=== PATIENT | male | born 2000 | race Caucasian/White ===

== ENCOUNTER 2023-05-26 11:16 | Outpatient (AMB) | payer OTHER, SELFPAY ==
--- NOTE | 2023-05-26 11:25 | A.OFFPC_ITS ---
Vital Signs 05/26/23 11:32 Height 6 ft Weight 222 lb 6 oz BMI 30.2 BP 128/70 Blood Pressure Location Rt brachial Position Sitting Respiration 12 Pulse 76 Pulse Source Pulse Oximeter Temp 98 F Temp Source Temporal Artery Scan Pulse Oximetry (%) 98 Oxygen Delivery Method Room Air Intake Visit Reasons: New patient-Torn ACL Intake Note: Patient states that his ACL was torn 02/27/23. Patient states that he went to the ER and and did XRays and didn't find anything and didn't do a MRI. Patient states he then went to the doctors in the and thats when he was told he had torn an ACL. Patient brought in Disc that has MRI and XRays to view. 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 Required: No Accompanied by: Self / Same As Patient Allergies dog dander Allergy (Mild, Verified 05/26/23 12:19) Itchy Eyes Medication List - Last Reconciled 05/26/23 by Imelda Rodriguez CNP No Known Home Meds Tobacco use date assessed: 05/26/23 Dental Screening Dental Screen Date: 05/26/23 Did you have a dental visit in the last 12 months?: Yes Did you have a dental problem in the last 6 months where you did not have access to dental care?: No HPI HPI Comments History of Present Illness Details 22-year-old male presents to establish care He notes he was last evaluated by his former PCP in [place] 2 months ago He reclocated to [facility] from [place] a month ago. He is in the He denies significant PMH He notes that he is not prescription medications He states his left ACL torn after he picked up his friend on his shoulder and around with him on 02/27/2023. He was evaluated in the ED and was later diagnosed with ACL tear after he had an MRI at a clinic. No acute symptoms today PFSH Medical History (Updated 05/26/23 @ 12:42 by Imelda Rodriguez CNP) ADD (attention deficit disorder) ADHD Hypoglycemia Torn ACL Surgical History (Updated 05/26/23 @ 11:44 by Lara Hdez MA) No pertinent past surgical history Family History (Updated 05/26/23 @ 11:46 by Lara Hdez MA) Mother Peanut allergy Animal dander allergy Asthma Schizophrenic disorder Alcoholism Social History Housing: Apartment Patient Tobacco Use Status: Never used Tobacco e-Cigarette/Vaping Use: Former Use (Vaping) service: Yes Current occupational status: employed Current occupation: [id number] Cognitive needs: No Hearing needs: No Vision needs: No Questionnaire PHQ-9 Over the last 2 weeks, how often have you been bothered by any of the following problems? 1. Little interest or pleasure in doing things: not at all 2. Feeling down, depressed, or hopeless: not at all 3. Trouble falling or staying asleep, or sleeping too much: not at all 4. Feeling tired or having little energy: not at all 5. Poor appetite or overeating: not at all 6. Feeling bad about yourself - or that you are a failure or have let yourself or your family down: not at all 7. Trouble concentrating on things, such as reading the newspaper or watching television: not at all 8. Moving or speaking so slowly that other people could have noticed. Or the opposite - being so fidgety or restless that you have been moving around a lot more than usual: not at all 9. Thoughts that you would be better off or of hurting yourself in some way: not at all Total score: 0 Depression Screening Interpretation: Negative Source: Developed by Drs. Charles Costello, Sonam Farley, Jonnie Beebe and colleagues, with an educational halima from [employer]. Thrive Questionnaire Date Thrive assessed: 05/26/23 I am a: Patient What is your living situation today?: I have a steady place to live Within the past 12 months, did the food you bought not last and you didn't have the money to get more?: Never true Within the past 12 months, did you worry whether your food would run out before you got money to buy more?: Never true Do you have trouble paying for medicines?: No Do you have trouble getting transportation to medical appointments?: No Do you have trouble paying your heating and electricity bill?: No Do you have trouble taking care of your child, family member or friend?: No Do you have trouble with day-to-day activities such as bathing, preparing meals, shopping, managing finances, etc.?: No Are you currently unemployed and looking for a job?: No Are you interested in more education?: Yes Please select the resources that you would like help with: Education Currently or been in a relationship where the following occur: no concerns reported NAJMA-7 AMB Questionnaire NAJMA-7 Date NAJMA - 7 assessed: 05/26/23 Feeling nervous, anxious, or on edge: 0 = Not at all Not being able to stop or control worryin = Not at all Worrying too much about different things: 0 = Not at all Trouble relaxin = Not at all Being so restless that it is hard to sit still: 0 = Not at all Becoming easily annoyed or irritable: 0 = Not at all Feeling afraid as if something awful might happen: 0 = Not at all Total NAJMA-7 score (0-4 normal; 5-9 mild; 10-14 moderate; 15-21 severe): 0 Source: Developed by Drs. Charles Costello, Sonam Farley, Jonnie Beebe and colleagues, with an educational halima from [employer]. Review of Systems Const Details: Denies chills, Denies fatigue, Denies fever(s), Denies headache(s) and Denies weakness HEENT Denies change in vision, Denies dizziness, Denies headache(s), Denies hearing loss, Denies nasal congestion, Denies sinus pain, Denies sinus pressure and Denies sore throat Card Denies chest pain, Denies lightheadedness, Denies dyspnea and Denies other (palpitations) Resp Denies cough, Denies dyspnea and Denies wheezing GI Denies abdominal pain, Denies melena, Denies hematochezia, Denies change in bowel habits, Denies dyspepsia and Denies nausea Denies hematuria and Denies dysuria Musc Denies abnormal gait, Denies myalgias, Denies arthralgias, Denies numbness and Denies tingling Skin/Breast Denies rash, Denies unusual bruising and Denies wounds Neuro Denies abnormal gait, Denies dizziness, Denies headache(s), Denies memory loss, Denies numbness, Denies Sensory deficit (Neuro), Denies tingling and Denies weakness Psych Denies anxiety, Denies depression and Denies memory loss Endo Denies cold intolerance, Denies fatigue, Denies heat intolerance, Denies polydipsia and Denies polyuria Roddy/Lymph Denies easy bleeding and Denies easy bruising Aller/Immun Denies wheezing Physical exam (Primary Care) Vital Signs: Last Vital Signs Temp 98 F 05/26/23 11:32 Pulse 76 05/26/23 11:32 Resp 12 05/26/23 11:32 BP 128/70 05/26/23 11:32 Pulse Ox 98 05/26/23 11:32 Oxygen Delivery Method Room Air 05/26/23 11:32 BMI result Body Mass Index 30.2 Tobacco/Smoking Status: Tobacco use Status Tobacco use date assessed 05/26/23 05/26/23 11:52 Patient Tobacco Use Status Never used Tobacco 05/26/23 11:52 Tobacco use type 05/26/23 11:52 e-Cigarette/Vaping Use Former Use (Vaping) 05/26/23 11:52 PHQ-9: PHQ-9 Score PHQ-9: Total score 0 05/26/23 11:52 Depression Screening Interpretation: Negative Thrive Assessment: Date of Thrive Assessment Date Thrive assessed 05/26/23 05/26/23 11:52 Currently or been in a relationship where the following occur: no concerns reported Const Other: General: no acute distress, well developed, alert and awake Nutritional Appearance: well nourished Orientation/consciousness: patient oriented x3 HENMT Head: Yes normocephalic and Yes atraumatic Ears: hearing grossly normal bilaterally and TM's normal bilaterally General nose exam: Normal external nose present and Normal nares present Mouth: Normal oral and palatal mucosa present and moist mucous membranes Teeth and gingiva: dentition normal Throat: Yes oropharynx normal Eyes Pupils: Equal, round and reactive pupils present and Pupil accommodation reflex normal EOM: EOMs intact bilaterally Neck Neck: Yes normal visual inspection, Yes no lymphadenopathy and Yes trachea midline Thyroid: Thyroid normal Carotids: no bruits Lymphatic: no lymphadenopathy noted Chest Chest palpation & inspection: normal inspection of the chest Resp Effort & Inspection: normal respiratory effort Auscultation: clear to auscultation bilaterally Cardio Rate: regular rate Rhythm: regular rhythm Heart sounds: S1 normal heart sound present, S2 normal heart sound present, no gallops, no murmurs and no rubs Bruits: no abdominal aortic bruits and no carotid bruits GI Palpation (GI): No Abdominal aortic bruit present, Soft to palpation, nontender, No hepatosplenomegaly present and No Rebound tenderness present Auscultation: normal bowel sounds General: Yes no CVA tenderness Back/Spine/Pelvis Back: no CVA tenderness Cervical Spine: cervical ROM normal and No Cervical spine tenderness Thoracic/Lumbar Spine: thoraco-lumbar ROM normal, No pain with thoraco-lumbar ROM, No thoracic spinal tenderness and No lumbar spinal tenderness Skin General: warm and dry. Normal skin color. Normal skin turgor Lesions: no lesions Rashes: no rashes Trauma: no lacerations or abrasions Wounds: no wounds Nails: normal Neuro General: patient oriented x3, gait normal and CN's II-XI intact bilaterally Cranial nerves: Yes Equal, round and reactive pupils present Cognition (Neuro): normal cognition Gait exam (Neuro): Normal gait present Motor exam (neuro): 5/5 motor strength present throughout Sensory Exam: No Sensory deficit (Neuro) Deep tendon reflexes (DTR's): Right patellar reflex intensity grade: 2+ and Left patellar reflex intensity grade: 2+ Extrem General: Yes normal to inspection, No edema and No calf tenderness Psych Appearance: grossly normal Affect: normal affect Attitude: cooperative Thought process: Normal thought process present Assessment and Plan Assessment & Plan (1) Normal physical examination, routine: Code(s): Z00.00 - Encounter for general adult medical examination without abnormal findings Plan: No significant physical restrictions or limitations noted Encouraged to get blood work done before next visit Follow-up in 1 month for labs review Return sooner with symptoms or concerns Verbalized understanding and agreed with treatment plan. (2) Torn ACL: Code(s): S83.519A - Sprain of anterior cruciate ligament of unspecified knee, initial encounter Plan: He states his left ACL torn after he picked up his friend on his shoulder and around with him on 02/27/2023. He was evaluated in the ED and was later diagnosed with ACL tear after he had an MRI at a clinic. Denies acute symptoms Review of MRI report on 03/02/2023 revealed full-thickness anterior cruciate ligament tear with irregularity of the posterolateral joint capsule which may represent capsular injury. The lateral stabilizers are order weighs intact Referred to Orthopedics Advised to follow-up with symptoms or concerns Verbalized understanding and agreed with the plan. (3) Laboratory tests ordered as part of a complete physical exam (CPE): Code(s): Z00.00 - Encounter for general adult medical examination without abnormal findings Plan: Fasting labs ordered as part of a complete physical exam. Advised to fast for at least 10 hours before getting labs drawn. May drink water Verbalized understanding and agreed with treatment plan. Orders: Orders Comprehensive [place]. Panel Fast Today Z00.00 - Encounter for general adult medical examination without abnormal findings Lipid Panel Today Z00.00 - Encounter for general adult medical examination without abnormal findings TSH reflex Free T4 Today Z00.00 - Encounter for general adult medical examination without abnormal findings Complete Blood Count no Diff Today Z00.00 - Encounter for general adult medical examination without abnormal findings UA CC w/rflx Micro + Cult Today Z00.00 - Encounter for general adult medical examination without abnormal findings Referrals Orthopedics Referral S83.519A - Sprain of anterior cruciate ligament of unspecified knee, initial encounter Coding Level of Care Code New Pt Level 3 (57008) New Pt Prev Care 18-39yr(17831 Diagnoses Normal physical examination, routine Z00.00 Torn ACL S83.519A Laboratory tests ordered as part of a complete physical exam (CPE) Z00.00 Time Spent (min) 35
[2023-05-26 11:32] VITALS: BP 128/70; PULSE 76; RESP 12; TEMP 36.6; O2SAT 98; BMI 30.2
== END 2023-05-26 12:42 | disposition home or self-care (01) ==
PROVIDERS: PCP Nurse Practitioner Family; Visit Provider Nurse Practitioner Family
DX: Z00.00 Encounter for general adult medical examination without abnormal findings (principal); S83.519A Sprain of anterior cruciate ligament of unspecified knee, initial encounter
CPT/HCPCS: 99385

== ENCOUNTER 2023-07-07 11:41 | Outpatient (REF) | payer OTHER, SELFPAY ==
[2023-07-07 14:21] LABS: Appearance Urine Clear; Color Urine Yellow; Glucose Urine UA Negative (Negative); Hemoglobin 14.7 g/dl (14.0-18.0); Leukocyte Esterase Urine Negative (Negative); Mean Corpuscular HGB Conc 33.4 g/dl (31.0-36.0); Mean Corpuscular Hemoglobin 29.7 pg (27.0-33.0); Mean Corpuscular Volume 88.9 fL (80.0-98.0); Mean Platelet Volume 9.9 fL (9.4-12.4); Nitrite Urine Negative (Negative); PH 6.5 (5.0-9.0); Platelet Count 337 X10*3/uL (160-400); Red Blood Count 4.95 X10*6/uL (4.60-5.80); Red Cell Distribution Width 12.2 % (11.0-16.0); Specific Gravity - Urine 1.015 (1.005-1.025); Urine Blood Negative (Negative); Urine Ketones Negative (Negative); Urine Protein Negative (Neg-Trace); White Blood Count 5.5 X10*3/uL (4.8-10.8)
[2023-07-07 15:07] LABS: Alanine Aminotransferase 26 U/L (0-40); Albumin Level 4.6 g/dL (3.5-5.0); Alkaline Phosphatase 69 U/L (39-117); Anion Gap 11 (12-20); Aspartate Amino Transferase 24 U/L (5-37); Bilirubin Total 0.9 mg/dL (0.0-1.0); Blood Urea Nitrogen 13 mg/dL (9-16); Calcium 9.6 mg/dL (8.4-10.2); Carbon Dioxide 24 mmol/L (22-29); Chloride 107 mmol/L (96-108); Cholesterol 182 mg/dL (<200); Estimated Glomerular Filt Rate > 60; Glucose Fasting 87 mg/dL (60-99); HDL Cholesterol 53 mg/dL (>40); LDL Cholesterol Calculated 114 mg/dL (<100); Potassium 4.3 mmol/L (3.3-5.1); Sodium 138 mmol/L (135-145); Total Protein 7.3 g/dL (6.5-8.0); Triglycerides 77 mg/dL (<150)
[2023-07-07 15:13] LABS: TSH reflex Free T4 1.73 uIU/mL (0.32-4.0)
== END 2023-07-07 11:42 | disposition home or self-care (01) ==
LOC: HO.WFDLDS 11:41
PROVIDERS: Visit Provider Nurse Practitioner Family
DX: Z00.00 Encounter for general adult medical examination without abnormal findings (principal)
CPT/HCPCS: 36415; 80053; 80061; 81003; 84443; 85027

== ENCOUNTER 2023-07-09 08:54 | Outpatient (AMB) | payer OTHER, SELFPAY ==
--- NOTE | 2023-07-09 08:59 | MHC.OFFVIS ---
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 Patient reports that he has been having pain for about 5-6 months after injury. While intoxicated his friend was on his shoulders, he jumped and felt a pop in the knee and the knee gave out. He had coninuted pain and swelling of the left knee the following day where he had xrays, he later had an MRI done as well. Patient had an MRI done which showed an ACL tear. He curently has pain in the left knee, pain is worse with increased acitivity and lifting. He does have and use a hinged knee brace for the knee. 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 According to the intake note this occured when he tried jumping with his friend on his shoulders. Following this jump he felt a painful pop in his knee and his knee gave way on him. He reports being intoxicated at the time. He complains of pain and swelling in his knee since the injury, which he says worsens with increased activity or lifting activities. He says remaining physically fit is required for his job but this is very difficult due to his pain and instability. He says using stairs or exercising at the gym is difficult, and he has episodes of his knee feeling like giving way which he says is painful but resolves with time. He wears a hinged knee brace with activity, with some relief. He says recently his pain was bad enough that he felt he had to wear his brace with activity. He has some anxiety over surgery, and says this is mostly about being under anesthesia. He relates this to being black-out drunk and he is uncomfortable with this feeling. He reports having a family history of addiction, denies any personal drug use, but he is concerned about receiving Opiates following surgery He says he had an MRI done of his knee and was told he had a large ACL tear. He did not bring in his imaging today but a copy of the report was available for review. [facility] Medical History (Updated 07/09/23 @ 09:01 by David Avila) ADD (attention deficit disorder) ADHD Hypoglycemia Torn ACL Surgical History (Updated 05/26/23 @ 11:44 by Lara Hdez MA) No pertinent past surgical history Family History (Updated 05/26/23 @ 11:46 by Lara Hdez MA) Mother Peanut allergy Animal dander allergy Asthma Schizophrenic disorder Alcoholism Social History Housing: Apartment Patient Tobacco Use Status: Never used Tobacco e-Cigarette/Vaping Use: Former Use (Vaping) service: Yes Current occupational status: employed Current occupation: [employer] Cognitive needs: No Hearing needs: No Vision needs: No Review of Systems Const All systems reviewed & are unremarkable except as noted in HPI and below Physical Exam Vital Signs: BMI result Body Mass Index 30.1 Const General: no acute distress, alert and awake Orientation/consciousness: patient oriented x3 HEENT Head: Yes normocephalic and Yes atraumatic Eyes EOM: EOMs intact bilaterally Resp Effort & Inspection: normal respiratory effort and able to speak in complete sentences Cardio Jugular venous distension: no JVD Skin General skin exam: turgor normal Rashes: no rashes Neuro General: patient oriented x3 Extrem Other: Left Knee: Full ROM No effusion No JLT 2+ pato's Psych Appearance: grossly normal Affect: normal affect Attitude: cooperative Results Reviewed Results Reviewed: I personally reviewed relevant MR images Full-thickness ACL tear with irregularity of the posterolateral joint capsule which may represent capsular injury. The lateral stabilizers are otherwise intact. Large joint effusion. Bone contusion involving the posterolateral tibial plateau Assessment & Plan Assessment & Plan (1) Left anterior cruciate ligament tear: Code(s): S83.512A - Sprain of anterior cruciate ligament of left knee, initial encounter Plan: This is a 22 year old man with a left full-thickness ACL tear after a jumping injury from ~-01/2023. 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 He complains of several months of pain and swelling with activity, worse with using stairs, deep squats, or twisting activities. He has no effusion today. He denies any prior treatment and finds some relief from a hinged knee brace. I discussed his diagnosis and treatment options. I recommend a left ACL reconstruction, and the patient would like this done with autograft, with allograft on stand-by. I discussed the risks, benefits, and alternatives including, but not limited to, the risk of pain, infection, stiffness, need for further surgery as well as potential medical complications such as blood clots, pulmonary embolism and cardiac complications. I discussed the recovery timeline and process as well as the importance of PT. Da is a good candidate for this surgery, and he wishes to proceed with this decision. He will speak with Lor to schedule this procedure.He reports having a family history of addiction, denies any personal drug use, but he is concerned about receiving Opiates following surgery. I discussed this with him and reassured him that this was unlikely given the prescribed short-course of medication. Plan Scribed for Edwin Garcia MD by David Avila, medical center representative, on 07/09/23 at 9:30 AM, EST. Coding Level of Care Code New Pt Level 4 (71335) Diagnoses Left anterior cruciate ligament tear S83.512A
[2023-07-09 09:00] VITALS: BMI 30.1
== END 2023-07-09 09:49 | disposition home or self-care (01) ==
PROVIDERS: PCP Nurse Practitioner Family; Visit Provider Orthopaedic Surgery
DX: S83.512A Sprain of anterior cruciate ligament of left knee, initial encounter (principal)
CPT/HCPCS: 99204

== ENCOUNTER → 2023-07-09 08:54 | Outpatient (BNVA) | payer OTHER, SELFPAY | PROVIDERS: PCP Nurse Practitioner Family; Visit Provider Orthopaedic Surgery | DX: S83.512A Sprain of anterior cruciate ligament of left knee, initial encounter (principal) | CPT/HCPCS: 99202 ==

== ENCOUNTER 2023-07-17 11:34 | Outpatient (AMB) | payer OTHER, SELFPAY ==
[2023-07-17 11:36] VITALS: BP 112/60; PULSE 87; RESP 12; TEMP 36.4; O2SAT 99; BMI 30.9
--- NOTE | 2023-07-17 11:36 | MHC.PC.OV ---
Vital Signs 07/17/23 11:36 Height 6 ft Weight 228 lb 2 oz BMI 30.9 BP 112/60 Blood Pressure Location Lt brachial Position Sitting Respiration 12 Pulse 87 Pulse Source Pulse Oximeter Temp 97.6 F Temp Source Temporal Artery Scan Pulse Oximetry (%) 99 Oxygen Delivery Method Room Air Intake Visit Reasons: 1 mos lab review Intake Note: patient does not have any concerns today. Orchid Hand Required: No Accompanied by: Self / Same As Patient Allergies dog dander Allergy (Mild, Verified 07/17/23 11:57) Itchy Eyes amoxicillin Adverse Reaction (Verified 07/17/23 11:57) Unknown Medication List - Last Reconciled 07/17/23 by Imelda Rodriguez CNP No Known Home Meds Tobacco use date assessed: 05/26/23 Dental Screening Dental Screen Date: 07/17/23 Did you have a dental visit in the last 12 months?: Yes Did you have a dental problem in the last 6 months where you did not have access to dental care?: No Was dental information given to patient?: Patient has dentist HPI HPI Comments History of Present Illness Details 22-year-old male presents for labs review follow-up. He establish care last month and had routine blood work done. He notes recently had a consultation with [facility] orthopedic surgery and has total reconstructive surgery of the left knee scheduled for later this month. Review of [facility] ortho surgery notes revealed plan for ACL reconstruction. He offers no complaints today and denies acute symptoms. [facility] Medical History ADD (attention deficit disorder) ADHD Hypoglycemia Torn ACL Surgical History No pertinent past surgical history Family History Mother Peanut allergy Animal dander allergy Asthma Schizophrenic disorder Alcoholism Social History Housing: Apartment Patient Tobacco Use Status: Former Tobacco user e-Cigarette/Vaping Use: Former Use (Vaping) service: Yes Current occupational status: employed Current occupation: [employer] Cognitive needs: No Hearing needs: No Vision needs: No Questionnaire Thrive Questionnaire Date Thrive assessed: 05/26/23 NAJMA-7 AMB Questionnaire NAJMA-7 Date NAJMA - 7 assessed: 05/26/23 Source: Developed by Drs. Charles Costello, Sonam Farley, Jonnie Beebe and colleagues, with an educational halima from [employer]. Review of Systems Const Details: Const Denies chills, Denies fatigue, Denies fever(s), Denies headache(s) and Denies weakness ENT Denies dizziness and Denies headache(s) Card Denies chest pain, Denies lightheadedness, Denies dyspnea and Denies other (Palpitations) Resp Denies cough, Denies dyspnea, Denies wheezing and Denies other ( shortness of breath) GI Denies abdominal pain, Denies melena, Denies hematochezia, Denies change in bowel habits, Denies dyspepsia and Denies nausea Denies hematuria and Denies dysuria Musc Denies abnormal gait, Denies myalgias, Denies arthralgias, Denies numbness and Denies tingling Skin/Breast Denies rash, Denies unusual bruising and Denies wounds Neuro Denies abnormal gait, Denies dizziness, Denies headache(s), Denies memory loss, Denies numbness, Denies Sensory deficit (Neuro), Denies tingling and Denies weakness Psych Denies anxiety, Denies depression, Denies memory loss Endo Denies cold intolerance, Denies fatigue, Denies heat intolerance, Denies polydipsia and Denies polyuria Aller/Immun Denies wheezing Physical exam (Primary Care) Vital Signs: Last Vital Signs Temp 97.6 F 07/17/23 11:36 Pulse 87 07/17/23 11:36 Resp 12 07/17/23 11:36 BP 112/60 07/17/23 11:36 Pulse Ox 99 07/17/23 11:36 Oxygen Delivery Method Room Air 07/17/23 11:36 BMI result Body Mass Index 30.9 Tobacco/Smoking Status: Tobacco use Status Tobacco use date assessed 05/26/23 07/17/23 11:47 Patient Tobacco Use Status Former Tobacco user 07/17/23 11:47 Tobacco use type 06/23/23 15:16 e-Cigarette/Vaping Use Former Use (Vaping) 07/17/23 11:47 Thrive Assessment: Date of Thrive Assessment Date Thrive assessed 05/26/23 07/17/23 11:47 Const Other: General: no acute distress and well developed Nutritional Appearance: well nourished Orientation/consciousness: patient oriented x3 HENMT Head: Yes normocephalic and Yes atraumatic Eyes General: appearance normal, both eyes and all related structures Pupils: Equal, round and reactive pupils present EOM: EOMs intact bilaterally Resp Effort & Inspection: normal respiratory effort Auscultation: clear to auscultation bilaterally Cardio Rate: regular rate Rhythm: regular rhythm Heart sounds: S1 normal heart sound present, S2 normal heart sound present, no gallops, no murmurs and no rubs GI Palpation (GI): No Abdominal aortic bruit present, Soft to palpation, nontender, No hepatosplenomegaly present and No Rebound tenderness present Auscultation: normal bowel sounds General: Yes no CVA tenderness Back/Spine/Pelvis Back: no CVA tenderness Cervical Spine: cervical ROM normal and No Cervical spine tenderness Thoracic/Lumbar Spine: thoraco-lumbar ROM normal, No pain with thoraco-lumbar ROM, No thoracic spinal tenderness and No lumbar spinal tenderness Extrem General: Yes normal to inspection, No edema and No calf tenderness Skin General: warm and dry. Normal skin color. Normal skin turgor Lesions: no lesions Rashes: no rashes Trauma: no lacerations or abrasions Wounds: no wounds Nails: normal Neuro General: patient oriented x3, gait normal and no focal neuro deficit Cranial nerves: Yes Equal, round and reactive pupils present Cognition (Neuro): normal cognition Gait exam (Neuro): Normal gait present Sensory Exam: No Sensory deficit (Neuro) Psych Appearance: grossly normal Affect: normal affect Attitude: cooperative Thought process: Normal thought process present Assessment and Plan Assessment & Plan (1) Left anterior cruciate ligament tear: Code(s): S83.512A - Sprain of anterior cruciate ligament of left knee, initial encounter Plan: No acute symptoms Follow-up with [facility] orthopedic surgery as planned Return with symptoms or concerns Verbalized understanding and agreed with treatment plan. (2) Laboratory tests ordered as part of a complete physical exam (CPE): Code(s): Z00.00 - Encounter for general adult medical examination without abnormal findings Plan: Recent labs reviewed with the patient and findings are Unremarkable Encouraged to schedule his next physical for next year Follow-up with concerns or symptoms Verbalized understanding and agreed with treatment plan. Coding Level of Care Code Est Pt Level 2 (50751) Diagnoses Left anterior cruciate ligament tear S83.512A Laboratory tests ordered as part of a complete physical exam (CPE) Z00.00
== END 2023-07-17 12:07 | disposition home or self-care (01) ==
PROVIDERS: PCP Nurse Practitioner Family; Visit Provider Nurse Practitioner Family
DX: S83.512A Sprain of anterior cruciate ligament of left knee, initial encounter (principal); Z00.00 Encounter for general adult medical examination without abnormal findings
CPT/HCPCS: 99212

== ENCOUNTER 2023-08-05 06:01 | Day surgery (SDC) | payer OTHER, SELFPAY ==
[2023-07-31 14:21] VITALS: BMI 30.1
--- NOTE | 2023-08-04 08:25 | P.CONAN_ITS ---
Documented by User: Natalie Jiang NP 08/04/23 08:27 HPI - Anesthesia Eval Consult details Narrative: 22yo M for Left ACL Reconstruction w/autograft, possible allograft PMFSH Active Problems Active Problems: All Active Problems (Updated 07/09/23 @ 09:01 by David Avila) Left anterior cruciate ligament tear (Acute) Laboratory tests ordered as part of a complete physical exam (CPE) (Acute) Torn ACL (Acute) Normal physical examination, routine (Acute) Past Medical History Medical History Hypoglycemia Torn ACL ADD (attention deficit disorder) ADHD Family History Family History Mother Peanut allergy Animal dander allergy Asthma Schizophrenic disorder Alcoholism Surgical History Surgical History No pertinent past surgical history Social History Social History Housing: Apartment Patient Tobacco Use Status: Former Tobacco user Tobacco use type: Cigarette e-Cigarette/Vaping Use: Former Use (Vaping) Use of substances other than those prescribed or required for medical reasons: No Are you DNR?: No Advance Directives: No Advance Directives Information Provided: Yes service: Yes Current occupational status: employed 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 needs: No Hearing needs: No Vision needs: No Meds Allergies Allergy/AdvReac Type Severity Reaction Status Date / Time dog dander Allergy Mild Itchy Eyes Verified 07/17/23 11:57 amoxicillin AdvReac Unknown Verified 07/17/23 11:57 Home Medications Medication Instructions Recorded Confirmed Last Taken Type No Known Home Meds 05/26/23 08/05/23 Unknown History Exam Exam Date and Time: August 04, 2023 0825 Height,Weight and Vital Signs: Height 6 ft Weight 100.698 kg Pertinent Lab Results Pertinent Lab Results: Laboratory Tests 07/07/23 11:43 WBC 5.5 Hgb 14.7 Hct 44.0 Plt Count 337 Sodium 138 Potassium 4.3 Chloride 107 Carbon Dioxide 24 BUN 13 Creatinine 0.93 Assessment and Plan Assessment Anesthesia Assessment: Chart Reviewed Documented by User: Nancy Gay MD 08/05/23 08:02 PMFSH Past Medical History Medical History Hypoglycemia Torn ACL ADD (attention deficit disorder) ADHD Family History Family History Mother Peanut allergy Animal dander allergy Asthma Schizophrenic disorder Alcoholism Family history of problems with anesthesia: No Surgical History Surgical History No pertinent past surgical history Social History Social History Housing: Apartment Patient Tobacco Use Status: Former Tobacco user Tobacco use type: Cigarette e-Cigarette/Vaping Use: Former Use (Vaping) Use of substances other than those prescribed or required for medical reasons: No Are you DNR?: No Advance Directives: No Advance Directives Information Provided: Yes service: Yes Current occupational status: employed 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 needs: No Hearing needs: No Vision needs: No Meds Allergies Allergy/AdvReac Type Severity Reaction Status Date / Time dog dander Allergy Mild Itchy Eyes Verified 07/17/23 11:57 amoxicillin AdvReac Unknown Verified 07/17/23 11:57 Home Medications Medication Instructions Recorded Confirmed Last Taken Type No Known Home Meds 05/26/23 08/05/23 Unknown History Exam Airway Mallampati Class: II TM Dist: >3cm Neck ROM: Full Heart: rrr Lungs: cta Assessment and Plan Assessment Anesthesia Assessment: Anesthesia Plan Discussed Final Anesthetic Review Family History of Problems with Anesthesia: No NPO: Yes ASA Class: II Final Preanesthetic Review: No Changes in Pt Med Stat, Meds/Allgs Chart Reviewed, Consent Obtained/Reviewed and Anes Risks/Benef Reviewed Patient Risk: Low Procedure Risk: Intermediate Anesthetic Plan Anesthetic Plan: GA and Regional Block Disposition: Standard PACU
[2023-08-05 06:20] VITALS: BP 132/80; PULSE 75; RESP 16; TEMP 37.4; O2SAT 100
[2023-08-05] MEDS: Lactated Ringers 1,000 ML 100 ML IVCONT (06:40)
--- NOTE | 2023-08-05 07:10 | MHC.SHP ---
Pre-Procedural Eval Section A Date of Service: 08/05/23 The patient is an INPATIENT: No Changes since office visit: No Cold of Flu in the past 2 weeks, No New Medical Problems, No Changes in Medication and No Patient answered all questions The History & Physical has been completed within 30 days and I have reviewed it.: Yes Section B Chief Complaint: Sprain of anterior cruciate ligament of left knee Allergies: Allergies Allergy/AdvReac Type Severity Reaction Status Date / Time dog dander Allergy Mild Itchy Eyes Verified 07/17/23 11:57 amoxicillin AdvReac Unknown Verified 07/17/23 11:57 Plan I have reviewed the history and physical and performed a pertinent physical examination on my patient. No changes have occurred unless specified. Time Spent With Patient Time: Total time managing care of this patient today ____ minutes.
--- NOTE | 2023-08-05 09:22 | P.BOP_ITS ---
Brief Operative Note Date of Service: 08/05/23 Pre-op diagnosis: Left ACL tear Post-op diagnosis: same Procedure: Left ACL with allograft Implants: Frank and Nephew ACL button and 10x25 interference screw Surgeon: Edwin Garcia MD Anesthesia: GETA and regional Was an Luncheonette Manager used for this Procedure?: Yes Luncheonette Manager: Kirti Cao Estimated blood loss (mL): 50 Tourniquet time (min): 40 IV fluids (mL): 1,000 Pathology: none sent Condition: stable Disposition: PACU
[2023-08-05 09:36] VITALS: BP 113/65; PULSE 85; RESP 20; TEMP 36.8; O2SAT 100
[2023-08-05 09:41] VITALS: BP 119/66; PULSE 77; RESP 20; O2SAT 96
[2023-08-05 09:46] VITALS: BP 127/60; PULSE 79; RESP 20; O2SAT 96
[2023-08-05 09:51] VITALS: BP 126/65; PULSE 72; RESP 19; O2SAT 96
[2023-08-05 10:06] VITALS: BP 130/66; PULSE 59; RESP 18; TEMP 36.5; O2SAT 97
--- NOTE | 2023-08-10 11:14 | W.PM.OPN ---
Operative Note Operative Note Date of Service: 08/05/23 Narrative: Date of Service: 08/05/23 Pre-op diagnosis: Left ACL tear Post-op diagnosis: same Procedure: Left ACL with allograft Implants: Frank and Nephew ACL button and 10x25 interference screw Surgeon: Edwin Garcia MD Anesthesia: GETA and regional Was an Wallet Assembler used for this Procedure?: Yes Wallet Assembler: Kirti Cao Estimated blood loss (mL): 50 Tourniquet time (min): 40 IV fluids (mL): 1,000 Pathology: none sent Condition: stable Disposition: PACU Procedure in detail: Patient was brought to the operating room placed supine on the arthroscopic table and prepped and draped in standard sterile fashion. A time-out was called to identify proper site proper procedure proper surgeon and IV antibiotics per weight were administered. Under anesthesia she had a + pivot shift. I made a medial incision and the pes tendonw were identified after sharp dissection through the fasica. The smaller of the tendons was stripped proximally but diminutive and then the semi T was identified and stripped proximally but also of small caliber. The decision was made to use allograft given his age. I then exsanguinated the limb and insufflating tourniquet to 300 mm Hg. I made a standard anterolateral stab incision. The knee was insufflated with water and 30 degree arthroscope was placed. There was grade 1 fibrillations of the patella but overall suprapatellar pouch and the gutters were clean. I descended into the medial compartment where I made my far medial portal under direct visualization. There was an intac medial meniscus and no cartilage changes of the medial compartment. the lateral compartment was examined and there were no abnormal findings. I then examined the notch where there was a + empty wall sign and an intact PCL. I debrided the stump and acl footprint and performed a limited notchplasty. I then, through a far AM portal and a 7mm behind the back guide, drilled a k-wire through the LFC with the knee in hyper-flexion. I measured the tunnel as a 31 and then after sizing the allograft on the back table drilled a 25 mm tunnel with a 10 mm reamer. The final 6 mm was drilled with a 4.5 reamer. I then pulled a suture through the femoral tunnel and turned my attention to the tibia. I did examine the femoral tunnel and was satisfied with the posterior wall and its location low and medial at the anatomic footprint. I placed my tibial drill guide in 55 deg and, through a anteromedial inc just lateral to the tibial tubercle placed a k-wire into the notch exiting just medial to the anterior horn insertion of the lateral meniscus. I then over-reamed with a 10 reamer. I cleaned the tunnels up with a shaver. On the back table I whip-stitched the allograft to fit through an 11 aperture and attached the femoral button to the looped end. I placed the graft on 15lbs of tension for 10 minutes. I then passed the allograft through the tibial tunnel and femoral tunnel and flipped the button. I cycled the knee about 10-15 cycles and then placed a tibial interference screw with the knee in hyper-extension while holding the graft taught. Once I was satisfied that the interference screw was buried I examined the ACL and the medial meniscus repair. The repair was stable and the ACL was not impinging and there was a negative pivot shift. I then removed all instrumentation and closed the incisions with nylon. Patient was then placed in sterile dressings and a hinged knee brace. She was then extubated brought recovery room stable condition. There were no known complications.
== END 2023-08-05 11:01 | disposition home or self-care (01) ==
LOC: HO.SSS 06:02
PROVIDERS: PCP Nurse Practitioner Family; Visit Provider Orthopaedic Surgery
PROC: (CPT 27428; principal; 2023-08-05 07:30)
DX: S83.512A Sprain of anterior cruciate ligament of left knee, initial encounter (principal); X50.0XXA Overexertion from strenuous movement or load, initial encounter; M25.562 Pain in left knee; F90.9 Attention-deficit hyperactivity disorder, unspecified type; Y93.83 Activity, rough housing and horseplay; Y92.9 Unspecified place or not applicable; Y99.9 Unspecified external cause status
CPT/HCPCS: 29888; C1713; C1769; J0171; J0690; J1100; J1885; J2250; J2405

== ENCOUNTER → 2023-08-05 06:01 | Outpatient (BNV) | payer OTHER, SELFPAY | PROVIDERS: PCP Nurse Practitioner Family; Visit Provider Orthopaedic Surgery | DX: S83.512A Sprain of anterior cruciate ligament of left knee, initial encounter (principal) | CPT/HCPCS: 29888 ==

== ENCOUNTER 2023-08-11 13:26 | Outpatient (AMB) | payer OTHER, SELFPAY ==
--- NOTE | 2023-08-11 13:33 | A.OFFVIS_ITS ---
Intake Intake Visit Reasons: PO-Lt ACL 08/05/23 NE Intake Note: Da is a 22 year old male who presents today for a post op appointment s/p left ACL 08/05/23 NE. Patient reports he is doing well still having some soreness. He would like to know when he is able to bend his knee. Allergies dog dander Allergy (Mild, Verified 08/11/23 13:35) Itchy Eyes amoxicillin Adverse Reaction (Verified 08/11/23 13:35) Unknown HPI PO-Lt ACL 08/05/23 NE HPI Details 22-year-old male who presents in the off ice today 6 days status post left knee ACL repair with allograft, which was performed on 08/10/[address] Garcia. [facility] Medical History Hypoglycemia Torn ACL ADD (attention deficit disorder) ADHD Surgical History No pertinent past surgical history Family History Mother Peanut allergy Animal dander allergy Asthma Schizophrenic disorder Alcoholism Social History Housing: Apartment Patient Tobacco Use Status: Former Tobacco user Tobacco use type: Cigarette e-Cigarette/Vaping Use: Former Use (Vaping) service: Yes Current occupational status: employed Current occupation: [id number] Cognitive needs: No Hearing needs: No Vision needs: No Review of Systems Const All systems reviewed & are unremarkable except as noted in HPI and below Physical Exam Const General: cooperative, healthy appearing and no acute distress Resp Effort & Inspection: normal respiratory effort and able to speak in complete sentences Cardio Rate: regular rate Peripheral pulses: Peripheral pulses 2+ throughout GI Palpation (GI): Soft to palpation Skin Lesions: no lesions Rashes: no rashes Extrem Other: Left knee: Incision sites are clean, dry, and intact. Steri-stripes are intact. No surrounding erythema or signs of infection. ROM is 0-45 degrees. NVI. Assessment & Plan Assessment & Plan (1) S/P repair of anterior cruciate ligament: Code(s): Z98.890 - Other specified postprocedural states Plan Mr. Jeff is a 22-year-old male who presents in the office today 6 days status post left knee ACL repair with allograft, which was performed on 08/10/[address] Garcia. There were no suture due to using glue to close. A stockinette was placed and his brace was reapplied. He has his first appointment with physical therapy tomorrow (08/12/2023). He will remain out of work until follow up, as he works in the . Follow up will be in 4 weeks, or sooner if needed. Patient Instructions: Scribed for Kirti Cao PA-C by Marivel Luis medical voucher clerk, on 08/11/2023 at 1:30 pm, EST. Coding Level of Care Code Global (36588) Diagnoses S/P repair of anterior cruciate ligament Z98.890
== END 2023-08-11 13:59 | disposition home or self-care (01) ==
PROVIDERS: PCP Nurse Practitioner Family; Visit Provider Physician Assistant
DX: S83.512A Sprain of anterior cruciate ligament of left knee, initial encounter (principal); Z48.89 Encounter for other specified surgical aftercare
CPT/HCPCS: 99024

== ENCOUNTER → 2023-08-11 13:26 | Outpatient (BNVA) | payer OTHER, SELFPAY | PROVIDERS: PCP Nurse Practitioner Family; Visit Provider Physician Assistant ==

== ENCOUNTER 2023-09-08 10:28 | Outpatient (AMB) | payer OTHER, SELFPAY ==
--- NOTE | 2023-09-08 10:46 | MHC.OFFVIS ---
Intake Intake Visit Reasons: PO Lt ACL 08/05/23 NE Intake Note: Da is a 22 year old male who presents today for a post op appointment s/p left ACL 08/05/23 NE. Patient reports he is doing well, he has mild soreness while working with PT. He has concerns of itchiness in his knee. Allergies dog dander Allergy (Mild, Verified 09/08/23 10:49) Itchy Eyes amoxicillin Adverse Reaction (Verified 09/08/23 10:49) Unknown HPI PO Lt ACL 08/05/23 NE HPI Details 22-year-old male who presents in the office today 1 month status post left knee ACL repair with allograft, which was performed on 08/10/[address] Garcia. The patient reports he is doing good. He claims to have mild soreness while working with physical therapy. He states he has some itchiness on the right knee, which started with some tiny red spots. He also reports a small amount of pus that was noticed on one occasion at the incision site. The patient presented in the office without the brace. He states today is the first day he left the house without the brace. He states he does ambulate around the house of it. Patient works in the . He states he has it worked out to where he is not doing any heavy lifting. 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 No signs of infection. ROM is 5-120 degrees. NVI. Assessment & Plan Assessment & Plan (1) S/P repair of anterior cruciate ligament: Comment: 08/10/2023 NE Code(s): Z98.890 - Other specified postprocedural states Plan Mr. Jeff is a 22-year-old male who presents in the office today 1 month status post left knee ACL repair with allograft, which was performed on 08/10/[address] Garcia. The patient reports he is doing good. He claims to have mild soreness while working with physical therapy. He states he has some itchiness on the right knee, which started with some tiny red spots. He also reports a small amount of pus that was noticed on one occasion at the incision site. The patient presented in the office without the brace. He states today is the first day he left the house without the brace. He states he does ambulate around the house of it. Patient works in the . He states he has it worked out to where he is not doing any heavy lifting. The patient will continue to work with physical therapy on ROM. He was given a work note stating he may return to work for sedentary work only. He is to remain in the brace at all time while at work. Follow up will be in 6 weeks, or sooner if needed. X-rays of the left knee obtained while in the office today and reviewed by me, Kirti Cao PA-C, revealed intact and appropriated placement of the endobutton. Orders: Orders XR knee LT 2V Today M25.569 - Pain in unspecified knee Patient Instructions: Scribed for Kirti Cao PA-C by Marivel Luis medical assistant dermatology, on 09/08/2023 at 10:29 am, EST. Coding Level of Care Code Global (70207) Diagnoses S/P repair of anterior cruciate ligament Z98.890
== END 2023-09-08 11:00 | disposition home or self-care (01) ==
PROVIDERS: PCP Nurse Practitioner Family; Visit Provider Physician Assistant
DX: Z98.890 Other specified postprocedural states (principal)
CPT/HCPCS: 99024

== ENCOUNTER 2023-09-08 17:22 | Outpatient (REF) | payer OTHER, SELFPAY ==
--- NOTE | ~2023-09-08 | XR_ITS ---
EXAMINATION: XR KNEE, LEFT CLINICAL INFORMATION: Pain in unspecified COMPARISON: None available. TECHNIQUE: Two views of the left knee. FINDINGS: Expected postsurgical changes characteristic of ACL repair with distal lateral femoral endobutton and tibial tunnel. Joint spaces are preserved. Small suprapatellar effusion. XR/XR knee LT 2V IMPRESSION: Expected postsurgical changes characteristic of ACL repair. Small suprapatellar effusion.
== END 2023-09-08 17:23 | disposition home or self-care (01) ==
LOC: HO.HOSX 17:22
PROVIDERS: Visit Provider Physician Assistant
DX: Z47.89 Encounter for other orthopedic aftercare (principal)
CPT/HCPCS: 73560; 99212

== ENCOUNTER 2023-10-22 09:34 | Outpatient (AMB) | payer OTHER, SELFPAY ==
--- NOTE | 2023-10-22 09:37 | A.OFFVIS_ITS ---
Intake Vital Signs 10/22/23 09:38 Height 6 ft Weight 215 lb BMI 29.2 Intake Visit Reasons: PO Lt ACL 08/05/23 NE Intake Note: Da is a 22 year old male who presents today for a post op appointment s/p left ACL 08/05/23 NE. He is at work, sedentary work only, must wear brace at all times at work. Patient reports that he is doing well, he has no concerns at this time Allergies dog dander Allergy (Mild, Verified 09/08/23 10:49) Itchy Eyes amoxicillin Adverse Reaction (Verified 09/08/23 10:49) Unknown HPI PO Lt ACL 08/05/23 NE HPI Details Da is a 22 year old man presenting ~10 weeks S/P left ACL with allograft. He says he is doing well without any complaints or pain. He says his swelling took a long time to resolve. He has been working sedentary duties at work, while wearing his knee brace. He says this is going well for him. 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 He continues to work with PT on strengthening and motion. He says this is going well but he continues to have some weakness in his left leg. [facility] Medical History Hypoglycemia Torn ACL ADD (attention deficit disorder) ADHD Surgical History No pertinent past surgical history Family History Mother Peanut allergy Animal dander allergy Asthma Schizophrenic disorder Alcoholism Social History Housing: Apartment Patient Tobacco Use Status: Former Tobacco user Tobacco use type: Cigarette e-Cigarette/Vaping Use: Former Use (Vaping) service: Yes Current occupational status: employed Current occupation: [employer] Cognitive needs: No Hearing needs: No Vision needs: No Review of Systems Const All systems reviewed & are unremarkable except as noted in HPI and below Physical Exam Vital Signs: BMI result Body Mass Index 29.2 Const General: no acute distress, alert and awake Orientation/consciousness: patient oriented x3 HEENT Head: Yes normocephalic and Yes atraumatic Eyes EOM: EOMs intact bilaterally Resp Effort & Inspection: normal respiratory effort and able to speak in complete sentences Cardio Jugular venous distension: no JVD Skin General skin exam: turgor normal Rashes: no rashes Neuro General: patient oriented x3 Extrem Other: inc c/d/i Full ROM newg PS 1+ Ant drawer with firm endpoint No effusion Mild quad atrophy comparted ot cl side Psych Appearance: grossly normal Affect: normal affect Attitude: cooperative Results Reviewed Results Reviewed: I personally reviewed relevant radiographs Expected postsurgical changes characteristic of ACL repair. Small suprapatellar effusion. Assessment & Plan Assessment & Plan (1) S/P repair of anterior cruciate ligament: Comment: 08/10/2023 NE Code(s): Z98.890 - Other specified postprocedural states Plan: Continue strengthening Cont PT F/u 3 months No running Plan Scribed for Edwin Garcia MD by David Avila, medical office manager, on 10/22/23 at 9:55 AM, EST. Coding Level of Care Code Global (80526) Diagnoses S/P repair of anterior cruciate ligament Z98.890
[2023-10-22 09:38] VITALS: BMI 29.2
== END 2023-10-22 10:07 | disposition home or self-care (01) ==
PROVIDERS: PCP Nurse Practitioner Family; Visit Provider Orthopaedic Surgery
DX: Z98.890 Other specified postprocedural states (principal)
CPT/HCPCS: 99024

== ENCOUNTER → 2023-10-22 09:34 | Outpatient (BNVA) | payer OTHER, SELFPAY | PROVIDERS: PCP Nurse Practitioner Family; Visit Provider Orthopaedic Surgery | DX: Z98.890 Other specified postprocedural states (principal) | CPT/HCPCS: 99212 ==

== ENCOUNTER 2023-10-26 10:00 | Outpatient (RCR) | payer OTHER, SELFPAY ==
--- NOTE | 2023-08-12 11:43 | MHC.PT.EP ---
[facility] [place] [facility] [place] [facility] [place] [facility] [address] Chelsie Guzmán [address] [phone] F: [phone] F: [phone] F: [phone] F: [phone] Physical Therapy Plan of Care Date of Evaluation: 08/12/23 Date of Surgery: 08/05/23 Diagnosis: L knee ACL reconstruction Assessment: Da is a 22 year old male who is referred to PT for s/p L ACL reconstruction . Allograft was done and he is 7 days post op today (08/05/23). On PT examination he presents with a constant pain of 4/10 over incision site, no TTP, decreased knee ROM, decreased L LE strength, altered posture, balance and gait. He lives with his girl friend and is independent with most self care activities but needs assistance to dress lower body and has to modify the way he does his ADLS. 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 He would benefit from skilled PT to address the aforementioned impairments and improve tolerance to functional activities. Frequency and Duration: The patient will be seen 2/week for 14 weeks. Short Term Goals: 1. Pt will be able to ambulate with 1 crutch in 3 weeks. 2. Pt will be able to ambulate with a unlocked brace in 4 weeks. 3. Pt will have all knee ROM WNL which will enable him to negotiate stairs without compensation in 6 weeks. Safety Counselor Goals: 1. Pt will demonstrate an increase in muscle strength by 1 grade which will enable him to ambulate without brace or AD and without feeling of instability in 8 weeks. 2. Pt will be initiate plyometric drill without feeling on unsteadiness in 10 weeks 3. Pt will be able to initiate light jogging without pain in 12 weeks. 4. Pt will be independent with HEP and return to PLOF in 14 weeks. Treatment Plan: Modalities to reduce pain, spasms and effusion. Manual therapy to restore motion and function. Therapeutic exercise to improve strength and flexibility. Neuromuscular re-education for posture and balance. Therapeutic activities to return to functional activities of daily living. Electronically signed by: India Church PT DPT Please sign and return to therapist. Thank you for your referral.
--- NOTE | 2023-11-30 15:16 | MHC.PT.DC ---
[facility] [place] Office [place] Office [place] Office [address] Chelsie Guzmán [address] [facility] [phone] F: [phone] F: [phone] F: [phone] F: [phone] Physical Therapy Discharge Report Diagnosis: L knee ACL reconstruction Date of Surgery: 08/05/23 Date of Evaluation: 08/12/23 Date of Discharge: 11/30/23 Treatments to Date: 21 Cancellations to Date: 0 No Shows to Date: 0 Discharge Status: Achieved Goals Improved Function Independent with HEP Discharge Summary: Da completed 21 PT visits and made significant improvements with PT. He is independent with all HEP as well. He is therefore being d/c from PT. Electronically signed by: India Church, PT DPT Please sign and return to therapist. Thank you for your referral.
== END 2023-11-30 15:16 | disposition home or self-care (01) ==
LOC: HO.PT 10:00
PROVIDERS: PCP Nurse Practitioner Family; Visit Provider Physician Assistant
DX: Z98.890 Other specified postprocedural states (principal)
CPT/HCPCS: 97110; 97112; 97116; 97140; 97161; 97530

== ENCOUNTER 2023-10-30 08:58 | Outpatient (AMB) | payer OTHER, SELFPAY ==
--- NOTE | 2023-10-30 09:03 | A.OFFPC_ITS ---
Vital Signs 10/30/23 09:04 Height 6 ft Weight 228 lb 8 oz BMI 31.0 BP 122/70 Blood Pressure Location Rt brachial Position Sitting Respiration 13 Pulse 79 Pulse Source Pulse Oximeter Temp 97.7 F Temp Source Temporal Artery Scan Pulse Oximetry (%) 99 Oxygen Delivery Method Room Air Intake Visit Reasons: f/u [facility] 08/05/23 - left ACL Chief Of Internal Medicine Required: No Accompanied by: Self / Same As Patient Allergies dog dander Allergy (Mild, Verified 10/30/23 09:32) Itchy Eyes amoxicillin Adverse Reaction (Verified 10/30/23 09:32) Unknown Tobacco use date assessed: 05/26/23 Dental Screening Dental Screen Date: 10/30/23 Did you have a dental visit in the last 12 months?: Yes Did you have a dental problem in the last 6 months where you did not have access to dental care?: No Was dental information given to patient?: Patient has dentist HPI HPI Comments History of Present Illness Details 22-year-old male presents for follow-up visit He had total reconstructive surgery of left ACL tear in 07/2023 He notes that he completed a course of physical therapy He is followed by [facility] orthopedic surgery. He had at a follow-up appointment last week and is scheduled to follow-up in 3 months He offers no complaints. He denies pain or discomfort PFSH Medical History Hypoglycemia Torn ACL ADD (attention deficit disorder) ADHD Surgical History H/O anterior cruciate ligament surgery No pertinent past surgical history Family History Mother Peanut allergy Animal dander allergy Asthma Schizophrenic disorder Alcoholism Social History Housing: Apartment Patient Tobacco Use Status: Former Tobacco user Tobacco use type: Cigarette e-Cigarette/Vaping Use: Currently Using (Vaping) service: Yes Current occupational status: employed Current occupation: [employer] Cognitive needs: No Hearing needs: No Vision needs: No Questionnaire Thrive Questionnaire Date Thrive assessed: 05/26/23 NAJMA-7 AMB Questionnaire NAJMA-7 Date NAJMA - 7 assessed: 05/26/23 Source: Developed by Drs. Charles Costello, Sonam Farley, Jonnie Beebe and colleagues, with an educational halima from [employer]. Review of Systems Const Details: Const Denies chills, Denies fatigue, Denies fever(s), Denies headache(s) and Denies weakness ENT Denies dizziness and Denies headache(s) Card Denies chest pain, Denies lightheadedness, Denies dyspnea and Denies other (Palpitations) Resp Denies cough, Denies dyspnea, Denies wheezing and Denies other ( shortness of breath) GI Denies abdominal pain, Denies melena, Denies hematochezia, Denies change in bowel habits, Denies dyspepsia and Denies nausea Denies hematuria and Denies dysuria Musc Denies abnormal gait, Denies myalgias, Denies arthralgias, Denies numbness and Denies tingling Skin/Breast Denies rash, Denies unusual bruising and Denies wounds Neuro Denies abnormal gait, Denies dizziness, Denies headache(s), Denies memory loss, Denies numbness, Denies Sensory deficit (Neuro), Denies tingling and Denies weakness Psych Denies anxiety, Denies depression, Denies memory loss Endo Denies cold intolerance, Denies fatigue, Denies heat intolerance, Denies polydipsia and Denies polyuria Aller/Immun Denies wheezing Physical exam (Primary Care) Vital Signs: Last Vital Signs Temp 97.7 F 10/30/23 09:04 Pulse 79 10/30/23 09:04 Resp 13 10/30/23 09:04 BP 122/70 10/30/23 09:04 Pulse Ox 99 10/30/23 09:04 Oxygen Delivery Method Room Air 10/30/23 09:04 BMI result Body Mass Index 31.0 Tobacco/Smoking Status: Tobacco use Status Tobacco use date assessed 05/26/23 10/30/23 09:10 Patient Tobacco Use Status Former Tobacco user 10/30/23 09:10 Tobacco use type Cigarette 10/30/23 09:10 e-Cigarette/Vaping Use Currently Using (Vaping) 10/30/23 09:10 Thrive Assessment: Date of Thrive Assessment Date Thrive assessed 05/26/23 10/30/23 09:10 Const Other: General: no acute distress and well developed Nutritional Appearance: well nourished Orientation/consciousness: patient oriented x3 [facility] Head: Yes normocephalic and Yes atraumatic Eyes General: appearance normal, both eyes and all related structures Pupils: Equal, round and reactive pupils present EOM: EOMs intact bilaterally Resp Effort & Inspection: normal respiratory effort Auscultation: clear to auscultation bilaterally Cardio Rate: regular rate Rhythm: regular rhythm Heart sounds: S1 normal heart sound present, S2 normal heart sound present, no gallops, no murmurs and no rubs GI Palpation (GI): No Abdominal aortic bruit present, Soft to palpation, nontender, No hepatosplenomegaly present and No Rebound tenderness present Auscultation: normal bowel sounds General: Yes no CVA tenderness Back/Spine/Pelvis Back: no CVA tenderness Cervical Spine: cervical ROM normal and No Cervical spine tenderness Thoracic/Lumbar Spine: thoraco-lumbar ROM normal, No pain with thoraco-lumbar ROM, No thoracic spinal tenderness and No lumbar spinal tenderness Extrem General: Yes normal to inspection, No edema and No calf tenderness Skin General: warm and dry. Normal skin color. Normal skin turgor Neuro General: patient oriented x3, gait normal and no focal neuro deficit Cranial nerves: Yes Equal, round and reactive pupils present Cognition (Neuro): normal cognition Gait exam (Neuro): Normal gait present Sensory Exam: No Sensory deficit (Neuro) Psych Appearance: grossly normal Affect: normal affect Attitude: cooperative Thought process: Normal thought process present Assessment and Plan Assessment & Plan (1) S/P repair of anterior cruciate ligament: Comment: 08/10/2023 NE Code(s): Z98.890 - Other specified postprocedural states Plan: No acute symptoms Physical exam is benign Continue current treatment regimen Continue to follow up with [facility] orthopedic surgery as planned Follow-up for an extended physical exam next May Return sooner with symptoms or concerns Verbalized understanding and agreed with treatment plan Coding Level of Care Code Est Pt Level 3 (42923) Diagnoses S/P repair of anterior cruciate ligament Z98.890
[2023-10-30 09:04] VITALS: BP 122/70; PULSE 79; RESP 13; TEMP 36.5; O2SAT 99; BMI 31.0
== END 2023-10-30 09:39 | disposition home or self-care (01) ==
PROVIDERS: PCP Nurse Practitioner Family; Visit Provider Nurse Practitioner Family
DX: Z98.890 Other specified postprocedural states (principal)
CPT/HCPCS: 99213

== ENCOUNTER 2024-02-15 09:17 | Outpatient (AMB) | payer OTHER, SELFPAY ==
[2024-02-15 09:38] VITALS: BMI 30.9
--- NOTE | 2024-02-15 09:38 | MHC.OFFVIS ---
Intake Vital Signs 02/15/24 09:38 Height 6 ft Weight 228 lb BMI 30.9 Intake Visit Reasons: OV- Lt ACL 08/05/23 NE Intake Note: Evelyn is a 23 year old male who presents today for a follow up of his left knee s/p Left ACL Reconstruction 08/05/23. Patient reports that he is doing well, he has some instability with walking and sports. He has some sharp pain when participaitng in martial arts. Allergies dog dander Allergy (Mild, Verified 02/15/24 09:39) Itchy Eyes amoxicillin Adverse Reaction (Verified 02/15/24 09:39) Unknown HPI OV- Lt ACL 08/05/23 NE HPI Details Da is doing well. He states that at the end of a long day on his feet he symptoms feels some discomfort in his left knee but he does not describe giving way or episodes of instability. He has been doing some martial arts grappling and has not been doing his physical therapy diligently over the past 3 months. 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 Physical therapy was ordered. I recommend he attend for dynamic condition and strengthening. I recommend a at home closed-chain exercise exercise program like stationary biking and I recommend that he avoid martial arts. I will see him back in 3 months. Orders: Orders PT Evaluation and Treatment Today Z98.890 - Other specified postprocedural states Coding Level of Care Code Est Pt Level 3 (85384) Diagnoses S/P repair of anterior cruciate ligament Z98.890
== END 2024-02-15 10:06 | disposition home or self-care (01) ==
PROVIDERS: PCP Nurse Practitioner Family; Visit Provider Orthopaedic Surgery
DX: S83.512D Sprain of anterior cruciate ligament of left knee, subsequent encounter (principal)
CPT/HCPCS: 99213

== ENCOUNTER → 2024-02-15 09:17 | Outpatient (BNVA) | payer OTHER, SELFPAY | PROVIDERS: PCP Nurse Practitioner Family; Visit Provider Orthopaedic Surgery | DX: M25.562 Pain in left knee (principal); Z98.890 Other specified postprocedural states | CPT/HCPCS: 99212 ==

== ENCOUNTER 2024-02-22 11:25 | Outpatient (AMB) | payer OTHER, SELFPAY ==
--- NOTE | 2024-02-22 11:30 | MHC.PC.OV ---
Vital Signs 02/22/24 11:37 Height 6 ft Weight 226 lb 2 oz BMI 30.7 BP 124/74 Blood Pressure Location Lt brachial Position Sitting Pulse 75 Pulse Source Pulse Oximeter Pulse Oximetry (%) 95 Oxygen Delivery Method Room Air Intake Visit Reasons: Sign physical screening form Intake Note: Patient is here today for physical form. Child Welfare Assistant Required: No Track Liner Operator: Not Required per policy Accompanied by: Self / Same As Patient Allergies dog dander Allergy (Mild, Verified 02/22/24 12:01) Itchy Eyes amoxicillin Adverse Reaction (Verified 02/22/24 12:01) Unknown Medication List - Last Reconciled 02/22/24 by Imelda Rodriguez CNP No Known Home Meds Tobacco use date assessed: 02/22/24 Dental Screening Dental Screen Date: 02/22/24 Did you have a dental visit in the last 12 months?: No Did you have a dental problem in the last 6 months where you did not have access to dental care?: No Was dental information given to patient?: No HPI HPI Comments History of Present Illness Details 23-year-old male presents with request to fill out paperwork for his employer, 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 He is S/P repair of left anterior cruciate ligament tear in 07/2023 He denies acute symptoms at this time [facility] Medical History Hypoglycemia Torn ACL ADD (attention deficit disorder) ADHD Surgical History (Updated 02/22/24 @ 11:41 by MALI Granados) H/O anterior cruciate ligament surgery Family History Mother Peanut allergy Animal dander allergy Asthma Schizophrenic disorder Alcoholism Social History (Updated 02/22/24 @ 11:42 by MALI Granados) Housing: Apartment Alcohol intake: current Alcohol intake frequency: 0-2 drinks per day Patient Tobacco Use Status: Former Tobacco user Tobacco use type: Cigarette e-Cigarette/Vaping Use: Currently Using (Vaping) Second Hand Smoke Exposure: Yes service: Yes Current occupational status: employed 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 1. Little interest or pleasure in doing things: not at all 2. Feeling down, depressed, or hopeless: not at all 3. Trouble falling or staying asleep, or sleeping too much: not at all 4. Feeling tired or having little energy: not at all 5. Poor appetite or overeating: not at all 6. Feeling bad about yourself - or that you are a failure or have let yourself or your family down: not at all 7. Trouble concentrating on things, such as reading the newspaper or watching television: not at all 8. Moving or speaking so slowly that other people could have noticed. Or the opposite - being so fidgety or restless that you have been moving around a lot more than usual: not at all 9. Thoughts that you would be better off or of hurting yourself in some way: not at all Total score: 0 Depression Screening Interpretation: Negative Depression Screening Done: Yes Source: Developed by Drs. Charles Costello, Sonam Farley, Jonnie Beebe and colleagues, with an educational halima from [employer]. Thrive Questionnaire Date Thrive assessed: 02/22/24 I am a: Patient What is your living situation today?: I have a steady place to live Within the past 12 months, did the food you bought not last and you didn't have the money to get more?: Never true Within the past 12 months, did you worry whether your food would run out before you got money to buy more?: Never true Do you have trouble paying for medicines?: No Do you have trouble getting transportation to medical appointments?: No Do you have trouble paying your heating and electricity bill?: No Do you have trouble taking care of your child, family member or friend?: No Do you have trouble with day-to-day activities such as bathing, preparing meals, shopping, managing finances, etc.?: No Are you currently unemployed and looking for a job?: No Are you interested in more education?: No Currently or been in a relationship where the following occur: no concerns reported THRIVE Score: 0 AUDIT C Alcohol Use Questionnaire (AUDIT-C) 1. How often do you have a drink containing alcohol?: Never Total Score: 0 NAJMA-7 AMB Questionnaire NAJMA-7 Date NAJMA - 7 assessed: 02/22/24 Feeling nervous, anxious, or on edge: 0 = Not at all Not being able to stop or control worryin = Not at all Worrying too much about different things: 0 = Not at all Trouble relaxin = Not at all Being so restless that it is hard to sit still: 0 = Not at all Becoming easily annoyed or irritable: 0 = Not at all Feeling afraid as if something awful might happen: 0 = Not at all Total NAJMA-7 score (0-4 normal; 5-9 mild; 10-14 moderate; 15-21 severe): 0 Source: Developed by Drs. Charles Costello, Sonam Farley, Jonnie Beebe and colleagues, with an educational halima from [employer]. Review of Systems Const Details: Const Denies chills, Denies fatigue, Denies fever(s), Denies headache(s) and Denies weakness ENT Denies dizziness and Denies headache(s) Card Denies chest pain, Denies lightheadedness, Denies dyspnea and Denies other (Palpitations) Resp Denies cough, Denies dyspnea, Denies wheezing and Denies other ( shortness of breath) GI Denies abdominal pain, Denies melena, Denies hematochezia, Denies change in bowel habits, Denies dyspepsia and Denies nausea Denies hematuria and Denies dysuria Musc Denies abnormal gait, Denies myalgias, Denies arthralgias, Denies numbness and Denies tingling Skin/Breast Denies rash, Denies unusual bruising and Denies wounds Neuro Denies abnormal gait, Denies dizziness, Denies headache(s), Denies memory loss, Denies numbness, Denies Sensory deficit (Neuro), Denies tingling and Denies weakness Psych Denies anxiety, Denies depression, Denies memory loss Endo Denies cold intolerance, Denies fatigue, Denies heat intolerance, Denies polydipsia and Denies polyuria Aller/Immun Denies wheezing Physical exam (Primary Care) Vital Signs: Last Vital Signs Pulse 75 02/22/24 11:37 BP 124/74 02/22/24 11:37 Pulse Ox 95 02/22/24 11:37 Oxygen Delivery Method Room Air 02/22/24 11:37 BMI result Body Mass Index 30.7 Tobacco/Smoking Status: Tobacco use Status Tobacco use date assessed 02/22/24 02/22/24 11:45 Patient Tobacco Use Status Former Tobacco user 02/22/24 11:42 Tobacco use type Cigarette 02/22/24 11:42 e-Cigarette/Vaping Use Currently Using (Vaping) 02/22/24 11:42 PHQ-9: PHQ-9 Score PHQ-9: Total score 0 02/22/24 11:32 Depression Screening Interpretation: Negative Thrive Assessment: Date of Thrive Assessment Date Thrive assessed 02/22/24 02/22/24 11:32 Currently or been in a relationship where the following occur: no concerns reported Const Other: General: no acute distress and well developed Nutritional Appearance: well nourished Orientation/consciousness: patient oriented x3 HENMT Head: Yes normocephalic and Yes atraumatic Eyes General: appearance normal, both eyes and all related structures Pupils: Equal, round and reactive pupils present EOM: EOMs intact bilaterally Resp Effort & Inspection: normal respiratory effort Auscultation: clear to auscultation bilaterally Cardio Rate: regular rate Rhythm: regular rhythm Heart sounds: S1 normal heart sound present, S2 normal heart sound present, no gallops, no murmurs and no rubs GI Palpation (GI): No Abdominal aortic bruit present, Soft to palpation, nontender, No hepatosplenomegaly present and No Rebound tenderness present Auscultation: normal bowel sounds General: Yes no CVA tenderness Back/Spine/Pelvis Back: no CVA tenderness Cervical Spine: cervical ROM normal and No Cervical spine tenderness Thoracic/Lumbar Spine: thoraco-lumbar ROM normal, No pain with thoraco-lumbar ROM, No thoracic spinal tenderness and No lumbar spinal tenderness Extrem General: Yes normal to inspection, No edema and No calf tenderness Skin General: warm and dry. Normal skin color. Normal skin turgor Neuro General: patient oriented x3, gait normal and no focal neuro deficit Cranial nerves: Yes Equal, round and reactive pupils present Cognition (Neuro): normal cognition Gait exam (Neuro): Normal gait present Sensory Exam: No Sensory deficit (Neuro) Psych Appearance: grossly normal Affect: normal affect Attitude: cooperative Thought process: Normal thought process present Assessment and Plan Assessment & Plan (1) S/P repair of anterior cruciate ligament: Comment: 08/10/2023 NE Code(s): Z98.890 - Other specified postprocedural states Plan: Patient request documentation to be exempt from duties required prolonged running Documentation filled out and signed and signed Advised to follow-up as planned Return with symptoms or concerns Verbalized understanding and agreed with the plan Coding Level of Care Code Est Pt Level 3 (96903) Diagnoses S/P repair of anterior cruciate ligament Z98.890
[2024-02-22 11:37] VITALS: BP 124/74; PULSE 75; O2SAT 95; BMI 30.7
== END 2024-02-22 12:24 | disposition home or self-care (01) ==
PROVIDERS: PCP Nurse Practitioner Family; Visit Provider Nurse Practitioner Family
DX: Z98.890 Other specified postprocedural states (principal)
CPT/HCPCS: 99213

== ENCOUNTER 2024-04-28 09:00 | Outpatient (RCR) | payer OTHER, SELFPAY ==
--- NOTE | 2024-06-03 15:52 | MHC.PT.EP ---
[facility] [place] Office [place] Office [place] Office [address] Chelsie Guzmán [address] [phone] F: [phone] F: [phone] F: [phone] F: [phone] Physical Therapy Plan of Care Date of Evaluation: 03/03/24 Date of Surgery: 08/05/23 Diagnosis: dynamic ACL rehab as per protocol S/P repair of ACL (RL) Assessment: pt is a 23 y/o male presenting to physical therapy w/ referring diagnosis of dynamic ACL rehab as per protocol S/P repair of ACL. Impairments include pain, decreased range of motion, decreased strength, impaired functional mobility, impaired postural awareness, and altered ambulation mechanics. pt is a good candidate for skilled PT due to age, potential remediation of impairments, typical disease/condition progression and prognosis, comorbidities, and motivation. pt would benefit from skilled PT intervention to provide a tailored strengthening and stretching exercise program, functional training, gait training, postural re-training, neuromuscular re-education, modalities as needed for pain, equipment safety demonstration. Frequency and Duration: The patient will be seen 1x/wk for 8 wks Short Term Goals: pt will be I w/ HEP to promote self-management of condition. pt will improve L knee extension and flexion to 5/5 to promote ease in stair navigation. Snf Goals: pt will report a statistically significant improvement in self-reported outcome measure, LEFI, to promote return to PLOF. pt will report <2/10 L knee pain w/ running >20 minutes to promote improved tolerance for physical fitness tests for [employer]. Treatment Plan: Modalities to reduce pain, spasms and effusion. Manual therapy to restore motion and function. Therapeutic exercise to improve strength and flexibility. Neuromuscular re-education for posture and balance. Therapeutic activities to return to functional activities of daily living. Electronically signed by: Bettie Maldonado PT, DPT Please sign and return to therapist. Thank you for your referral.
--- NOTE | 2024-06-03 15:53 | MHC.PT.DC ---
[facility] [place] Office [place] Office [place] Office [address] Chelsie Guzmán [address] [facility] [phone] F: [phone] F: [phone] F: [phone] F: [phone] Physical Therapy Discharge Report Diagnosis: dynamic ACL rehab as per protocol S/P repair of ACL (RL) Date of Surgery: 08/05/23 Date of Evaluation: 03/03/24 Date of Discharge: 06/03/24 Treatments to Date: 9 Cancellations to Date: 0 No Shows to Date: 0 Discharge Status: Improved Function Independent with HEP Patient Elected to Stop Discharge Summary: The patient was making good progress with more dynamic/plyometric ACL reconstruction rehab. The patient was instructed in proper warm-up and cool down maneuvers to reduce risk of injury/inflammation. He was able to run short distances without pain or sensation of instability. He did still have some persistent single leg strength deficits. He was encouraged to schedule more visits; however, it has been >30 days since his last appointments. He is being discharged at this time. Electronically signed by: Bettie Maldonado PT, DPT Please sign and return to therapist. Thank you for your referral.
== END 2024-06-03 15:53 | disposition home or self-care (01) ==
LOC: HO.PT 09:00
PROVIDERS: Visit Provider Orthopaedic Surgery
DX: Z98.890 Other specified postprocedural states (principal)
CPT/HCPCS: 97110; 97162; 97530

== ENCOUNTER 2024-05-16 09:26 | Outpatient (AMB) | payer OTHER, SELFPAY ==
[2024-05-16 09:30] VITALS: BMI 30.6
--- NOTE | 2024-05-16 09:30 | MHC.OFFVIS ---
Vital Signs 05/16/24 09:30 Height 6 ft Weight 226 lb BMI 30.6 Intake Visit Reasons: O/V Lt ACL 08/05/23 NE Intake Note: Da is a 23 year old male who presents today for a follow up s/p Left ACL 08/05/23 NE. Patient reports that he was doing very well, but last week he had an increase of pain. He states that he woke up with the knee feeling off, he had pain while climbing stairs, this pain was sharp in nature. The pain has improved since then but the knee is still not feeling right. Physical therapy was ordered for patient. Recommended he attend for dynamic condition and strengthening. At home closed-chain exercise exercise program like stationary biking recommended and martial arts should be avoided. Allergies dog dander Allergy (Mild, Verified 05/16/24 09:36) Itchy Eyes amoxicillin Adverse Reaction (Verified 05/16/24 09:36) Unknown HPI HPI O/V Lt ACL 08/05/23 NE: Details: Da is 9-10 months status post left ACL reconstruction. He denies pain. He states he had 1 episode of anterior knee pain at work while ascending stairs. This has resolved. Does also describes 2 episodes in which she was standing from a seated position or beginning to ambulate after rest and he felt some pain which cause some mild giving way. He denies swelling or pain. He has not been working out. [facility], [facility] Medical History Hypoglycemia Torn ACL ADD (attention deficit disorder) ADHD Surgical History H/O anterior cruciate ligament surgery Family History Mother Peanut allergy Animal dander allergy Asthma Schizophrenic disorder Alcoholism Social History Housing: Apartment Alcohol intake: current Alcohol intake frequency: 0-2 drinks per day Patient Tobacco Use Status: Former Tobacco user Tobacco use type: Cigarette e-Cigarette/Vaping Use: Currently Using (Vaping) Second Hand Smoke Exposure: Yes service: Yes Current occupational status: employed Current occupation: [employer] Cognitive needs: No Hearing needs: No Vision needs: No Physical Exam Vital Signs: BMI result Body Mass Index 30.6 Extrem Other: Stable Sacha's/anterior drawer No effusion Stable to varus valgus stress Negative pivot shift Portals and incision are well healed Assessment & Plan Assessment & Plan (1) S/P repair of anterior cruciate ligament: Comment: 08/10/2023 NE Code(s): Z98.890 - Other specified postprocedural states Category: Surgical Plan: Status post ACL reconstruction. Overall he is doing well especially considering he has not been doing his exercises. I encouraged him to get back on a stationary bike and engage in muscle strengthening lower extremity exercises. I would like to see him back in 3 months' time. Coding Level of Care Code Est Pt Level 3 (27458) Diagnoses S/P repair of anterior cruciate ligament Z98.890
== END 2024-05-16 09:50 | disposition home or self-care (01) ==
PROVIDERS: PCP Nurse Practitioner Family; Visit Provider Orthopaedic Surgery
DX: M25.562 Pain in left knee (principal); Z47.89 Encounter for other orthopedic aftercare
CPT/HCPCS: 99213

== ENCOUNTER → 2024-05-16 09:26 | Outpatient (BNVA) | payer OTHER, SELFPAY | PROVIDERS: PCP Nurse Practitioner Family; Visit Provider Orthopaedic Surgery | DX: M25.562 Pain in left knee (principal); Z98.890 Other specified postprocedural states | CPT/HCPCS: 99212 ==

== ENCOUNTER 2024-09-19 09:18 | Outpatient (AMB) | payer OTHER, SELFPAY ==
[2024-09-19 09:19] VITALS: BMI 30.6
--- NOTE | 2024-09-19 09:19 | MHC.OFFVIS ---
Vital Signs 09/19/24 09:19 Height 6 ft Weight 226 lb BMI 30.6 Intake Visit Reasons: O/V Lt ACL 08/05/23 NE Intake Note: Da is a 23 year old male who presents today for a follow up of his left knee s/p Left ACL 08/05/23 NE. Patient was last seen in May where he had concerns of increased pain, he was instructed to work on strengthening activities for bilateral lower extremities. Patient reports that he is dong well, he has been completing the exercises and utilizes heat application. He is still unable to run and is trying to walk longer distances. Allergies dog dander Allergy (Mild, Verified 09/19/24 09:22) Itchy Eyes amoxicillin Adverse Reaction (Verified 09/19/24 09:22) Unknown HPI HPI O/V Lt ACL 08/05/23 NE: Details: Da is a 23 year old male who presents today for a follow up of his left knee s/p Left ACL 08/05/23 NE. Patient was last seen in May where he had concerns of increased pain, he was instructed to work on strengthening activities for bilateral lower extremities. Patient reports that he is dong well, he has been completing the exercises and utilizes heat application. He is still unable to run and is trying to walk longer distances. [facility] Medical History Hypoglycemia Torn ACL ADD (attention deficit disorder) ADHD Surgical History H/O anterior cruciate ligament surgery (08/05/23) Family History Mother Peanut allergy Animal dander allergy Asthma Schizophrenic disorder Alcoholism Social History Housing: Apartment Alcohol intake: current Alcohol intake frequency: 0-2 drinks per day Patient Tobacco Use Status: Former Tobacco user Tobacco use type: Cigarette e-Cigarette/Vaping Use: Currently Using (Vaping) Second Hand Smoke Exposure: Yes service: Yes Current occupational status: employed Current occupation: [employer]er Cognitive needs: No Hearing needs: No Vision needs: No Physical Exam Vital Signs: BMI result Body Mass Index 30.6 Extrem Other: Stable knee exam. He has no effusion. Stable to varus and valgus stress. Firm Sacha's with negative pivot shift. Full range of motion. Portals clean dry and intact. Assessment & Plan Assessment & Plan (1) S/P repair of anterior cruciate ligament: Comment: 08/10/2023 NE Code(s): Z98.890 - Other specified postprocedural states Category: Surgical Plan: This is a 23-year-old status post left ACL reconstruction proximally 14 months ago. He is doing well although has not returned to normal running activities. His knee exam is normal. He has occasional pain with impact activities but there are no restrictions at this time. He may follow up as needed. Coding Level of Care Code Est Pt Level 3 (36271) Diagnoses S/P repair of anterior cruciate ligament Z98.890
== END 2024-09-19 09:31 | disposition home or self-care (01) ==
LOC: HO.HOS 09:19
PROVIDERS: PCP Nurse Practitioner Family; Visit Provider Orthopaedic Surgery
DX: S83.512D Sprain of anterior cruciate ligament of left knee, subsequent encounter (principal)
CPT/HCPCS: 99212

== ENCOUNTER → 2024-09-19 09:18 | Outpatient (BNVA) | payer OTHER, SELFPAY | PROVIDERS: PCP Nurse Practitioner Family; Visit Provider Orthopaedic Surgery | DX: Z98.890 Other specified postprocedural states (principal) | CPT/HCPCS: 99212 ==